=== PATIENT | female | born 1940 | race Caucasian/White ===

== ENCOUNTER 2018-11-01 16:51 | Inpatient (IN) | payer OTHER ==
[~2018-11-01] VITALS: Ht 162.6 cm; Wt 57.6 kg
[2018-11-01 17:23] VITALS: BP_SYST 141
[2018-11-01] MEDS ORDERED: NACL 0.9% 1,000 ML IV ONE (18:10)
[2018-11-01] MEDS ORDERED: INSULIN REGULAR, HUMAN 10 UNITS/0.1 ML INJ IVP ONE ×2 (18:15→19:15)
[2018-11-01 18:21] LABS: BASOPHILS % (AUTO) 0.2 % (0.0-2.0); EOSINOPHILS % (AUTO) 0.7 % (0.0-4.0); HEMATOCRIT 41.4 % (36-48); HEMOGLOBIN 13.9 g/dL (12.0-16.0); LYMPHOCYTES # (AUTO) 1.6 K/uL (1.0-5.5); MEAN CORPUSCULAR HEMOGLOBIN 31 pg (27-31); MEAN CORPUSCULAR HGB CONC 34 % (32-36); MEAN CORPUSCULAR VOLUME 92 fL (79.0-98.0); MONOCYTES # (AUTO) 0.3 K/uL (0.0-1.0); MONOCYTES % (AUTO) 4.6 % (1.7-9.3); NEUTROPHILS # (AUTO) 4.8 K/uL (1.8-7.7); NEUTROPHILS % (AUTO) 70.5 % (40.0-70.0); PLATELET COUNT (AUTO) 229 K/uL (130-430); RED BLOOD CELL COUNT(AUTO) 4.48 MIL/uL (4.2-6.2); RED CELL DISTRIBUTION WIDTH 12.4 % (9.0-15.0); WHITE BLOOD COUNT (AUTO) 6.7 K/uL (4.8-10.8)
[2018-11-01 18:34] LABS: ANION GAP 11 (5-15); CALCIUM 9.1 mg/dL (8.4-11.0); CHLORIDE 89 mmol/L (98-107); CREATININE 1.26 mg/dL (0.55-1.30); POTASSIUM 4.4 mmol/L (3.5-5.1); SODIUM SERUM 123 mmol/L (136-145); UREA NITROGEN, BLOOD 34 mg/dL (8-21)
[2018-11-01 18:36] LABS: ALANINE AMINOTRANSFERASE 17 U/L (12-78); ALBUMIN 3.7 g/dL (3.4-4.8); ASPARTATE AMINOTRANSFERASE 11 U/L (10-37); TOTAL BILIRUBIN 0.7 mg/dL (0.0-1.0)
[2018-11-01 18:38] LABS: GLUCOSE 672 mg/dL (70-99)
[2018-11-01 18:38] LABS: BILIRUBIN,URINE NEGATIVE (NEGATIVE); BLOOD, URINE 1+ (NEGATIVE); CLARITY/URINE CLEAR (CLEAR); COLOR,URINE YELLOW (YELLOW); GLUCOSE,URINE 3+ (NEGATIVE); KETONES,URINE TRACE (NEGATIVE); NITRITE, URINE NEGATIVE (NEGATIVE); PH,URINE 5.5 (5.0-8.0); PROTEIN URINE NEGATIVE (NEGATIVE); UROBILINOGEN,URINE 0.2 (0.2-1.0)
[2018-11-01 18:44] LABS: LEUKOCYTE ESTERASE ,URINE TRACE (NEGATIVE)
[2018-11-01 18:45] LABS: RBC,URINE 0-3 /HPF (0-3)
[2018-11-01 18:46] LABS: BACTERIA,URINE FEW /HPF (None Seen); MUCUS,URINE None Seen /LPF (None Seen)
[2018-11-01] MEDS ORDERED: cefTRIAXone 1 GM in D5W 50 ML IV ONE (19:00)
[2018-11-01] MEDS ORDERED: cefTRIAXone 1 GM VIAL ONE (19:14)
[2018-11-01] MEDS ORDERED: MORPHINE 4 MG/ML INJ. SYRINGE IVP ONE (20:15)
[2018-11-01] MEDS ORDERED: ONDANSETRON HCL 4 MG/2 ML VIAL IVP ONE (20:15)
[2018-11-01] MEDS ORDERED: NACL 0.9% 2,000 ML IV ONE (20:15)
[2018-11-01] MEDS ORDERED: LORazepam 2 MG/ML VIAL (FOR ER USE) IVP ONE (20:30)
[2018-11-01 21:45] VITALS: BP_SYST 143
[2018-11-01] MEDS: NACL 0.9% 1,000 ML IV SCH (23:19)
[2018-11-01 23:40] VITALS: BP_SYST 117
[2018-11-02] MEDS ORDERED: ALBUTEROL SULFATE 0.083% 2.5 MG/3 ML VIAL.NEB INH PRN (05:45)
[2018-11-02] MEDS ORDERED: ONDANSETRON HCL 4 MG/2 ML VIAL IVP PRN (05:45)
[2018-11-02] MEDS ORDERED: ACETAMINOPHEN 325 MG TABLET PO PRN (05:45)
[2018-11-02 05:57] VITALS: BP_SYST 133
[2018-11-02] MEDS: INSULIN REGULAR, HUMAN 100 UNITS/ML, 10 ML VIAL (humuLIN R) SUBCUT PRN ×4 (06:15→20:49)
[2018-11-02 07:05] LABS: BASOPHILS % (AUTO) 0.2 % (0.0-2.0); EOSINOPHILS # (AUTO) 0.1 K/uL (0.0-0.4); EOSINOPHILS % (AUTO) 0.8 % (0.0-4.0); HEMATOCRIT 37.4 % (36-48); HEMOGLOBIN 12.7 g/dL (12.0-16.0); LYMPHOCYTES # (AUTO) 1.6 K/uL (1.0-5.5); LYMPHOCYTES % (AUTO) 22.1 % (20.5-51.5); MEAN CORPUSCULAR HEMOGLOBIN 31 pg (27-31); MEAN CORPUSCULAR HGB CONC 34 % (32-36); MEAN CORPUSCULAR VOLUME 91 fL (79.0-98.0); MONOCYTES # (AUTO) 0.4 K/uL (0.0-1.0); NEUTROPHILS # (AUTO) 5.1 K/uL (1.8-7.7); NEUTROPHILS % (AUTO) 71.9 % (40.0-70.0); PLATELET COUNT (AUTO) 182 K/uL (130-430); RED CELL DISTRIBUTION WIDTH 12.3 % (9.0-15.0); WHITE BLOOD COUNT (AUTO) 7.2 K/uL (4.8-10.8)
[2018-11-02 07:06] LABS: ANION GAP 10 (5-15); CALCIUM 7.8 mg/dL (8.4-11.0); CHLORIDE 103 mmol/L (98-107); CREATININE 0.85 mg/dL (0.55-1.30); GLUCOSE 323 mg/dL (70-99); POTASSIUM 5.4 mmol/L (3.5-5.1); SODIUM SERUM 136 mmol/L (136-145); UREA NITROGEN, BLOOD 17 mg/dL (8-21)
[2018-11-02 07:16] LABS: ALANINE AMINOTRANSFERASE 15 U/L (12-78); ALBUMIN 2.7 g/dL (3.4-4.8); ASPARTATE AMINOTRANSFERASE 17 U/L (10-37); TOTAL BILIRUBIN 0.7 mg/dL (0.0-1.0)
[2018-11-02 07:30] VITALS: BP_SYST 144
[2018-11-02] MEDS: NACL 0.9% 1,000 ML IV SCH ×3 (07:30→20:47)
[2018-11-02] MEDS ORDERED: SODIUM POLYSTYRENE SULFONATE 15 GM/60 ML UDBTL PO ONE (09:30)
[2018-11-02] MEDS ORDERED: traMADol HCL HCL 50 MG TABLET (ULTRAM) PO PRN (10:00)
[2018-11-02 11:35] VITALS: BP_SYST 138
[2018-11-02 15:31] VITALS: BP_SYST 121
[2018-11-02] MEDS ORDERED: CALCIUM GLUCONATE 500 MG TABLET PO ONE ×3 (17:45→20:00)
[2018-11-02] MEDS ORDERED: cefTRIAXone 1 GM IVPB PREMIX 50 ML IV SCH (19:00)
[2018-11-02] MEDS ORDERED: CALCIUM CHLORIDE 1 GM in NS 100 ML IV ONE (19:45)
[2018-11-02 20:00] VITALS: BP_SYST 128
[2018-11-02] MEDS ORDERED: CALCIUM CHLORIDE 1 GM/10ML VIAL (13.6 mEq Ca++/VIAL) ONE (20:03)
[2018-11-02 23:40] VITALS: BP_SYST 149
[2018-11-03] MEDS: INSULIN REGULAR, HUMAN 100 UNITS/ML, 10 ML VIAL (humuLIN R) SUBCUT PRN ×2 (06:09→11:28)
[2018-11-03 07:22] LABS: BASOPHILS % (AUTO) 0.3 % (0.0-2.0); EOSINOPHILS # (AUTO) 0.1 K/uL (0.0-0.4); EOSINOPHILS % (AUTO) 1.1 % (0.0-4.0); HEMATOCRIT 38.4 % (36-48); HEMOGLOBIN 12.6 g/dL (12.0-16.0); LYMPHOCYTES # (AUTO) 1.4 K/uL (1.0-5.5); LYMPHOCYTES % (AUTO) 20.8 % (20.5-51.5); MEAN CORPUSCULAR HEMOGLOBIN 31 pg (27-31); MEAN CORPUSCULAR HGB CONC 33 % (32-36); MEAN CORPUSCULAR VOLUME 93 fL (79.0-98.0); MONOCYTES # (AUTO) 0.4 K/uL (0.0-1.0); MONOCYTES % (AUTO) 5.5 % (1.7-9.3); NEUTROPHILS # (AUTO) 4.7 K/uL (1.8-7.7); NEUTROPHILS % (AUTO) 72.3 % (40.0-70.0); PLATELET COUNT (AUTO) 192 K/uL (130-430); RED BLOOD CELL COUNT(AUTO) 4.14 MIL/uL (4.2-6.2); RED CELL DISTRIBUTION WIDTH 12.1 % (9.0-15.0); WHITE BLOOD COUNT (AUTO) 6.6 K/uL (4.8-10.8)
[2018-11-03 08:07] VITALS: BP_SYST 134
[2018-11-03 08:19] LABS: ANION GAP 10 (5-15); CALCIUM 8.4 mg/dL (8.4-11.0); CHLORIDE 105 mmol/L (98-107); CREATININE 0.72 mg/dL (0.55-1.30); GLUCOSE 298 mg/dL (70-99); SODIUM SERUM 137 mmol/L (136-145); UREA NITROGEN, BLOOD 9 mg/dL (8-21)
[2018-11-03 08:24] LABS: ALANINE AMINOTRANSFERASE 15 U/L (12-78); ALBUMIN 2.7 g/dL (3.4-4.8); ASPARTATE AMINOTRANSFERASE 14 U/L (10-37); TOTAL BILIRUBIN 0.5 mg/dL (0.0-1.0)
[2018-11-03] MEDS ORDERED: LEVO250T2 PO (09:43)
[2018-11-03 09:44] VITALS: BP_SYST 134; BP_SYST 149
[2018-11-03 11:45] VITALS: BP_SYST 146
== END 2018-11-03 12:33 | disposition home health service (06) | DRG 638 ==
LOC: SED 16:51 → STU 21:25
PROVIDERS: ADMIT Internal Medicine; ATTEND Internal Medicine
DX: E11.65 Type 2 diabetes mellitus with hyperglycemia (principal); N39.0 Urinary tract infection, site not specified; E87.1 Hypo-osmolality and hyponatremia; E87.2 Acidosis; E86.0 Dehydration; E87.5 Hyperkalemia; Z88.2 Allergy status to sulfonamides; Z88.8 Allergy status to other drugs, medicaments and biological substances; Z88.6 Allergy status to analgesic agent; Z95.0 Presence of cardiac pacemaker
CPT/HCPCS: 36415; 80053; 81000-TC; 82962; 83036; 83605; 85025; 87040-TC; 87086; 93005; 96361; 96365; 96375; 99285; G0378; J0696; J1815; J2060; J2270; J2405; J7030

== ENCOUNTER 2019-05-02 18:27 | Emergency (ER) | payer OTHER ==
[~2019-05-02] VITALS: Ht 162.6 cm; Wt 58.5 kg
[2019-05-02 18:27] VITALS: BP_SYST 133
[~2019-05-02 18:27] MED LIST: LEVO250T2 PO
--- NOTE | 2019-05-02 18:27 | NUR ---
BROUGHT IN BY ACLS KELLY Cuello, PLACED IN BED #1 AND TRIAGED. REPORT GIVEN TO TAYLOR. PER MEDICS, PT LIVES ALONE AND GETS LONELY, ACTIVATES MEDICAL ALERT AND COMES TO HOSPITAL. PER MEDICS, PT MAY NEED PLACEMENT. MEDICS ATTEMPTED TO CALL DAUGHTER AND SHE DID NOT ANSWER.
--- NOTE | 2019-05-02 18:34 | NUR ---
Patient is awake, alert, and oriented x4. Patient states she started feeling like time slowed down yesterday and she just felt tired, it resolved later. She had another episode today starting at 1300. Patient denies pain, nausea, and vomiting.
--- NOTE | 2019-05-02 19:08 | NUR ---
Report given to DEB Membreno for continuation of care.
--- NOTE | 2019-05-02 20:13 | NUR ---
ER Dr. Rivera at bedside examining patient.
[2019-05-02] MEDS ORDERED: NACL 0.9% 1,000 ML IV ONE (20:30)
[2019-05-02 21:01] LABS: BILIRUBIN,URINE NEGATIVE (NEGATIVE); BLOOD, URINE NEGATIVE (NEGATIVE); CLARITY/URINE CLEAR (CLEAR); COLOR,URINE YELLOW (YELLOW); GLUCOSE,URINE NEGATIVE (NEGATIVE); KETONES,URINE NEGATIVE (NEGATIVE); LEUKOCYTE ESTERASE ,URINE TRACE (NEGATIVE); NITRITE, URINE NEGATIVE (NEGATIVE); PROTEIN URINE NEGATIVE (NEGATIVE); UROBILINOGEN,URINE 0.2 (0.2-1.0)
[2019-05-02 21:08] LABS: BACTERIA,URINE FEW /HPF (None Seen); RBC,URINE NONE SEEN /HPF (0-3)
[2019-05-02 21:09] LABS: MUCUS,URINE None Seen /LPF (None Seen)
[2019-05-02 21:12] LABS: BASOPHILS % (AUTO) 0.6 % (0.0-2.0); EOSINOPHILS # (AUTO) 0.1 K/uL (0.0-0.4); EOSINOPHILS % (AUTO) 1.7 % (0.0-4.0); HEMATOCRIT 38.1 % (36-48); HEMOGLOBIN 12.8 g/dL (12.0-16.0); LYMPHOCYTES # (AUTO) 2.7 K/uL (1.0-5.5); MEAN CORPUSCULAR HEMOGLOBIN 31 pg (27-31); MEAN CORPUSCULAR HGB CONC 34 % (32-36); MEAN CORPUSCULAR VOLUME 94 fL (79.0-98.0); MONOCYTES # (AUTO) 0.4 K/uL (0.0-1.0); MONOCYTES % (AUTO) 4.7 % (1.7-9.3); NEUTROPHILS # (AUTO) 4.6 K/uL (1.8-7.7); PLATELET COUNT (AUTO) 213 K/uL (130-430); RED BLOOD CELL COUNT(AUTO) 4.06 MIL/uL (4.2-6.2); RED CELL DISTRIBUTION WIDTH 13.5 % (9.0-15.0); WHITE BLOOD COUNT (AUTO) 7.9 K/uL (4.8-10.8)
[2019-05-02 21:29] LABS: ANION GAP 8 (5-15); CALCIUM 9.2 mg/dL (8.4-11.0); CHLORIDE 104 mmol/L (98-107); CREATININE 1.03 mg/dL (0.55-1.30); GLUCOSE 120 mg/dL (70-99); POTASSIUM 4.4 mmol/L (3.5-5.1); SODIUM SERUM 139 mmol/L (136-145); UREA NITROGEN, BLOOD 18 mg/dL (8-21)
--- NOTE | 2019-05-02 21:30 | NUR ---
Pt resting comfortably in hospital bed. No acute distress, will continue to monitor. Vital signs are stable.
[2019-05-02 21:37] LABS: ALANINE AMINOTRANSFERASE 19 U/L (12-78); ALBUMIN 3.4 g/dL (3.4-4.8); ASPARTATE AMINOTRANSFERASE 14 U/L (10-37); TOTAL BILIRUBIN 0.3 mg/dL (0.0-1.0)
[2019-05-02] MEDS ORDERED: CEPHALEXIN 500 MG CAPSULE PO ONE (23:15)
[2019-05-03 00:07] VITALS: BP_SYST 133
--- NOTE | 2019-05-03 00:07 | NUR ---
Patient given written and verbal discharge instructions and verbalizes understanding. ER MD discussed with patient the results and treatment provided. Patient in stable condition. ID arm band removed. IV catheter removed intact and dressing applied, no active bleeding. Rx of Keflex given. Patient educated on pain management and to follow up with PMD. Pain Scale 2/10 tolerable for patient . Opportunity for questions provided and answered. Medication side effect fact sheet provided.
== END 2019-05-03 00:07 | disposition home or self-care (01) ==
LOC: SED 18:27
DX: S80.819A Abrasion, unspecified lower leg, initial encounter (principal); N39.0 Urinary tract infection, site not specified; V19.9XXA Pedal cyclist (driver) (passenger) injured in unspecified traffic accident, initial encounter; Y93.89 Activity, other specified; Y92.488 Other paved roadways as the place of occurrence of the external cause; Y99.8 Other external cause status
CPT/HCPCS: 36415; 71045; 80053; 81000; 84484; 85025; 93005; 99284; J7030